=== PATIENT | male | born 1995 | race Two or more races ===

== ENCOUNTER 2025-01-05 09:38 | Emergency (ER) | payer BC, OTHER ==
[2025-01-05] MEDS: Sodium Chloride 0.9% 10 ML Syringe FLUSH PRN (09:57)
[2025-01-05 09:59] LABS: BASOPHILS ABSOLUTE AUTO 0.01 10^3/uL (0.00-0.10); BASOPHILS PERCENT AUTO 0.2 % (0.0-1.0); EOSINOPHILS ABSOLUTE AUTO 0.31 10^3/uL (0.10-0.30); EOSINOPHILS PERCENT AUTO 5.5 % (1.0-3.0); HEMATOCRIT 52.8 % (40.0-52.0); IMMATURE GRAN ABSOLUTE AUTO 0.01 10^3/uL (0.00-0.04); IMMATURE GRAN PERCENT AUTO 0.2 % (0.0-0.4); LYMPHOCYTES PERCENT AUTO 19.4 % (20.0-40.0); MEAN CORPUSCULAR HEMOGLOBIN 33.5 pg (27.0-31.0); MEAN CORPUSCULAR VOLUME 95.5 fL (82.0-92.0); MEAN PLATELET VOLUME 10.3 fL (7.4-10.4); MONOCYTES ABSOLUTE AUTO 0.45 10^3/uL (0.10-0.80); MONOCYTES PERCENT AUTO 7.9 % (2.0-8.0); NEUTROPHILS ABSOLUTE AUTO 3.79 10^3/uL (2.50-7.00); NEUTROPHILS PERCENT AUTO 66.8 % (50.0-70.0); PLATELET COUNT,PLT 115 10^3/uL (150-400); RED BLOOD CELL COUNT 5.53 10^6/uL (4.50-6.00); RED CELL DISTRIBUTION WIDTH 14.1 % (11.5-14.5); WHITE BLOOD CELL COUNT,WBC 5.67 10^3/uL (5.00-10.00)
[2025-01-05] MEDS: Sodium Chloride 0.9% 1,000 ML IV ONE ×2 (10:09→12:17)
[2025-01-05] MEDS: Ondansetron 4 MG/2 ML SDV IVPUSH ONE (10:10)
[2025-01-05 10:12] LABS: HEMOGLOBIN 18.5 g/dL (13.0-17.0)
[2025-01-05 10:27] LABS: ALANINE AMINOTRANSFERASE,ALT 1553 U/L (14-63); ALBUMIN 4.21 g/dL (3.40-5.00); ALKALINE PHOSPHATASE 180 U/L (46-116); ANION GAP 22.2 mmol/L (5-15); ASPARTATE AMNIOTRANSFERASE,AST 2132 U/L (15-37); BILIRUBIN TOTAL 3.7 mg/dL (0.2-1.0); BLOOD UREA NITROGEN,BUN 17 mg/dL (7-18); CALCIUM 9.8 mg/dL (8.7-10.3); CARBON DIOXIDE,CO2 23.2 mmol/L (21.0-32.0); CHLORIDE,CL 94 mmol/L (98-107); EST CRCL DRUG DOSING (CG) 158.51 mL/min; ESTIMATED GFR 130 mL/min (>=60); ETHANOL BLOOD MEDICAL < 3 mg/dL (<3); GLUCOSE RANDOM 98 mg/dL (70-140); POTASSIUM,K 3.4 mmol/L (3.5-5.1); PROTEIN TOTAL,TP 7.7 g/dL (6.4-8.2); SODIUM,NA 136 mmol/L (136-145)
[2025-01-05 10:42] LABS: AMYLASE 50 U/L (25-125); LIPASE 315 U/L (16-77)
[2025-01-05] MEDS: Iopamidol 755 Mg/ML 100 ML Bottle IV ONE (11:44)
[2025-01-05] MEDS: Sodium Chloride 0.9% 50 ML IV SCH (11:44)
[2025-01-05] MEDS: Ondansetron 4 MG Tab.DIS PO ONE (12:57)
[2025-01-05 13:18] VITALS: BP 131/90; PULSE 77
== END 2025-01-05 13:08 | disposition home or self-care (01) ==
LOC: KA.ED 09:38
DX: A08.4 Viral intestinal infection, unspecified (principal); K76.0 Fatty (change of) liver, not elsewhere classified; R94.5 Abnormal results of liver function studies; R53.83 Other fatigue; R53.81 Other malaise; F17.210 Nicotine dependence, cigarettes, uncomplicated
CPT/HCPCS: 71046; 74177; 80053; 80307; 82150; 83605; 83690; 84484; 85025; 87428; 96361; 96374; 99284; A9270; J2405; J3490; J7030; Q9967; 36415

== ENCOUNTER 2025-08-14 22:20 | Inpatient (IN) | payer BC ==
[2025-08-14] MEDS ORDERED: Sodium Chloride 0.9% 10 ML Syringe FLUSH PRN (22:34)
[2025-08-14 22:48] LABS: BASOPHILS ABSOLUTE AUTO 0.02 10^3/uL (0.00-0.10); BASOPHILS PERCENT AUTO 0.2 % (0.0-1.0); EOSINOPHILS ABSOLUTE AUTO 0.16 10^3/uL (0.10-0.30); EOSINOPHILS PERCENT AUTO 1.9 % (1.0-3.0); IMMATURE GRAN ABSOLUTE AUTO 0.01 10^3/uL (0.00-0.04); IMMATURE GRAN PERCENT AUTO 0.1 % (0.0-0.4); LYMPHOCYTES ABSOLUTE AUTO 1.45 10^3/uL (1.00-4.00); LYMPHOCYTES PERCENT AUTO 17.0 % (20.0-40.0); MEAN PLATELET VOLUME 9.4 fL (7.4-10.4); MONOCYTES ABSOLUTE AUTO 0.84 10^3/uL (0.10-0.80); MONOCYTES PERCENT AUTO 9.8 % (2.0-8.0); NEUTROPHILS ABSOLUTE AUTO 6.07 10^3/uL (2.50-7.00); NEUTROPHILS PERCENT AUTO 71.0 % (50.0-70.0); PLATELET COUNT,PLT 194 10^3/uL (150-400); RED BLOOD CELL COUNT 4.92 10^6/uL (4.50-6.00); RED CELL DISTRIBUTION WIDTH 12.5 % (11.5-14.5); WHITE BLOOD CELL COUNT,WBC 8.55 10^3/uL (5.00-10.00)
[2025-08-14] MEDS: Ketorolac 30 MG/ML SDV IVPUSH ONE (22:59)
[2025-08-14] MEDS: Ondansetron 4 MG/2 ML SDV IVPUSH ONE (22:59)
[2025-08-14 23:00] LABS: BLOOD UREA NITROGEN,BUN 11.0 mg/dL (7-18); CARBON DIOXIDE,CO2 27.7 mmol/L (21.0-32.0); CHLORIDE,CL 98.0 mmol/L (98-107); CREATININE 0.69 mg/dL (0.51-1.17); EST CRCL DRUG DOSING (CG) 174.94 mL/min; GLUCOSE RANDOM 150.0 mg/dL (70-140); POTASSIUM,K 3.5 mmol/L (3.5-5.1); SODIUM,NA 137.0 mmol/L (136-145)
[2025-08-14 23:01] LABS: ESTIMATED GFR 129.0 mL/min (>=60)
[2025-08-14 23:18] LABS: ALANINE AMINOTRANSFERASE,ALT 31.0 U/L (14-63); ASPARTATE AMNIOTRANSFERASE,AST 31.0 U/L (15-37); BILIRUBIN TOTAL 0.9 mg/dL (0.2-1.0); PROTEIN TOTAL,TP 7.0 g/dL (6.4-8.2)
[2025-08-14] MEDS: Iopamidol 755 Mg/ML 100 ML Bottle IV ONE (23:24)
[2025-08-14 23:34] LABS: AMPHETAMINES SCREEN, URINE NEGATIVE (NEGATIVE); COCAINE METABOLITES,URINE NEGATIVE (NEGATIVE); METHADONE SCREEN, URINE NEGATIVE (NEGATIVE); METHAMPHETAMINES SCREEN, URINE NEGATIVE (NEGATIVE); OXYCODONE SCREEN,URINE NEGATIVE (NEGATIVE); PCP SCREEN,URINE NEGATIVE (NEGATIVE); TCA SCREEN,URINE NEGATIVE (NEGATIVE); THC SCREEN,URINE 50 NG/ML NEGATIVE (NEGATIVE)
[2025-08-14 23:36] LABS: APPEARANCE,URINE SLIGHTLY CLOUDY (CLEAR); GLUCOSE,URINE NEGATIVE (NEGATIVE); OCCULT BLOOD,URINE NEGATIVE (NEGATIVE)
[2025-08-14 23:37] LABS: EPITHELIAL CELLS,URINE RARE /LPF
[2025-08-15] MEDS: Lactated Ringers 1,000 ML IV SCH ×2 (00:24→02:12)
[2025-08-15 09:12] LABS: CHOLESTEROL HDL 82 mg/dL (40-60); CHOLESTEROL LDL CALCULATED 42 mg/dL (0-100); CHOLESTEROL TOTAL 135 mg/dL (100-200)
[2025-08-16 07:29] LABS: BASOPHILS ABSOLUTE AUTO 0.02 10^3/uL (0.00-0.10); BASOPHILS PERCENT AUTO 0.2 % (0.0-1.0); EOSINOPHILS ABSOLUTE AUTO 0.30 10^3/uL (0.10-0.30); EOSINOPHILS PERCENT AUTO 3.3 % (1.0-3.0); IMMATURE GRAN ABSOLUTE AUTO 0.01 10^3/uL (0.00-0.04); IMMATURE GRAN PERCENT AUTO 0.1 % (0.0-0.4); LYMPHOCYTES ABSOLUTE AUTO 0.90 10^3/uL (1.00-4.00); LYMPHOCYTES PERCENT AUTO 9.8 % (20.0-40.0); MEAN PLATELET VOLUME 9.2 fL (7.4-10.4); MONOCYTES ABSOLUTE AUTO 1.08 10^3/uL (0.10-0.80); MONOCYTES PERCENT AUTO 11.7 % (2.0-8.0); NEUTROPHILS ABSOLUTE AUTO 6.91 10^3/uL (2.50-7.00); NEUTROPHILS PERCENT AUTO 74.9 % (50.0-70.0); PLATELET COUNT,PLT 141 10^3/uL (150-400); RED BLOOD CELL COUNT 4.31 10^6/uL (4.50-6.00); RED CELL DISTRIBUTION WIDTH 12.5 % (11.5-14.5); WHITE BLOOD CELL COUNT,WBC 9.22 10^3/uL (5.00-10.00)
[2025-08-16 07:48] LABS: ALANINE AMINOTRANSFERASE,ALT 18.0 U/L (14-63); ASPARTATE AMNIOTRANSFERASE,AST 18.0 U/L (15-37); BILIRUBIN TOTAL 0.6 mg/dL (0.2-1.0); CARBON DIOXIDE,CO2 34.1 mmol/L (21.0-32.0); CHLORIDE,CL 99.0 mmol/L (98-107); CREATININE 0.62 mg/dL (0.51-1.17); EST CRCL DRUG DOSING (CG) 194.7 mL/min; GLUCOSE RANDOM 102.0 mg/dL (70-140); POTASSIUM,K 4.7 mmol/L (3.5-5.1); PROTEIN TOTAL,TP 5.8 g/dL (6.4-8.2); SODIUM,NA 137.0 mmol/L (136-145)
[2025-08-16 07:59] LABS: BLOOD UREA NITROGEN,BUN 2.0 mg/dL (7-18)
[2025-08-16 08:01] LABS: ESTIMATED GFR 134.0 mL/min (>=60)
[2025-08-17 07:37] LABS: BASOPHILS ABSOLUTE AUTO 0.03 10^3/uL (0.00-0.10); BASOPHILS PERCENT AUTO 0.4 % (0.0-1.0); EOSINOPHILS ABSOLUTE AUTO 0.35 10^3/uL (0.10-0.30); EOSINOPHILS PERCENT AUTO 4.2 % (1.0-3.0); IMMATURE GRAN ABSOLUTE AUTO 0.03 10^3/uL (0.00-0.04); IMMATURE GRAN PERCENT AUTO 0.4 % (0.0-0.4); LYMPHOCYTES ABSOLUTE AUTO 0.87 10^3/uL (1.00-4.00); LYMPHOCYTES PERCENT AUTO 10.5 % (20.0-40.0); MEAN PLATELET VOLUME 9.4 fL (7.4-10.4); MONOCYTES ABSOLUTE AUTO 1.03 10^3/uL (0.10-0.80); MONOCYTES PERCENT AUTO 12.4 % (2.0-8.0); NEUTROPHILS ABSOLUTE AUTO 6.01 10^3/uL (2.50-7.00); NEUTROPHILS PERCENT AUTO 72.1 % (50.0-70.0); PLATELET COUNT,PLT 157 10^3/uL (150-400); RED BLOOD CELL COUNT 4.18 10^6/uL (4.50-6.00); RED CELL DISTRIBUTION WIDTH 12.6 % (11.5-14.5); WHITE BLOOD CELL COUNT,WBC 8.32 10^3/uL (5.00-10.00)
[2025-08-17 07:54] LABS: ALANINE AMINOTRANSFERASE,ALT 18.0 U/L (14-63); ASPARTATE AMNIOTRANSFERASE,AST 17.0 U/L (15-37); BILIRUBIN TOTAL 0.7 mg/dL (0.2-1.0); BLOOD UREA NITROGEN,BUN 2.0 mg/dL (7-18); CARBON DIOXIDE,CO2 32.2 mmol/L (21.0-32.0); CHLORIDE,CL 98.0 mmol/L (98-107); CREATININE 0.65 mg/dL (0.51-1.17); EST CRCL DRUG DOSING (CG) 185.71 mL/min; GLUCOSE RANDOM 92.0 mg/dL (70-140); POTASSIUM,K 3.8 mmol/L (3.5-5.1); PROTEIN TOTAL,TP 5.7 g/dL (6.4-8.2); SODIUM,NA 136.0 mmol/L (136-145)
[2025-08-17 08:02] LABS: ESTIMATED GFR 132.0 mL/min (>=60)
[2025-08-17 09:41] VITALS: BP 143/96; PULSE 88
== END 2025-08-17 10:37 | disposition home or self-care (01) | DRG 282 ==
LOC: KA.ED 22:20 → KA.MS 08-15 00:32
PROVIDERS: ADMIT Internal Medicine; ATTEND Internal Medicine
DX: K85.20 Alcohol induced acute pancreatitis without necrosis or infection (principal); J30.2 Other seasonal allergic rhinitis; F17.210 Nicotine dependence, cigarettes, uncomplicated; Z86.718 Personal history of other venous thrombosis and embolism
CPT/HCPCS: 36415; 71045; 74177; 76700; 80053; 80061; 80305-QW; 81001; 83690; 84484; 85025; 86140; 93010; 99223-GT; 99233-GT; 99238-GT; 99284; 99285; A9270-GY; J1171; J1650; J1885; J2405; J7030; J7120; Q3014; Q9967